=== PATIENT | female | born 1940 | race Caucasian/White ===

== ENCOUNTER → 2017-01-08 | Outpatient (CLI) | payer OTHER ==
[~2017-01-08] MED LIST: ALBU1AER9 INH; ATOR-26 PO; CYAN10005 PO; DPH/ PO; IRON TAB PO; MISCTAB78 PO; MOME220A INH; MONT1TAB3 PO; PRLSR20 PO; SERT50TA PO; SUMA50TA15 PO; TRAZ50TA35 PO; VERA1CAP7 PO; ZYRTEC PO
--- NOTE | 2017-01-08 16:10 | DIAGNOSTIC IMAGING REPORT ---
CHEST 2 VIEWS ROUTINE CLINICAL HISTORY: J45.909 [id number] dyspnea COMPARISON STUDY: 12/13/2015 FINDINGS: Mild chronic bilateral interstitial prominence. Chronic platelike atelectasis left base. No focal infiltrate. No cardiac enlargement. IMPRESSION: Mild interstitial change considered chronic. Chronic platelike atelectasis left base. No acute process. The above report was generated using voice recognition software. It may contain grammatical, syntax or spelling errors. Electronically signed by: Jerome Parmar M.D. 01/08/2017 4:08 PM Dictated Date/Time: 01/08/2017 4:08 PM
== END | disposition home or self-care (01) ==
LOC: C.RAD1850 15:51
PROVIDERS: ATTEND Internal Medicine Pulmonary Disease
DX: J45.909 Unspecified asthma, uncomplicated (principal); R91.8 Other nonspecific abnormal finding of lung field

== ENCOUNTER → 2017-01-31 | Outpatient (CLI) | payer OTHER ==
--- NOTE | 2017-01-31 12:43 | MAMMOGRAPHY REPORT ---
BILATERAL DIGITAL SCREENING MAMMOGRAM TOMOSYNTHESIS WITH CAD: 01/31/2017 CLINICAL HISTORY: Routine screening. TECHNIQUE: Breast tomosynthesis in addition to standard 2D mammography was performed. Current study was also evaluated with a Computer Aided Detection (CAD) system. COMPARISON: Comparison is made to exams dated: 11/23/2015 mammogram, 09/08/2014 mammogram, 07/28/2013 ma mmogram, 06/04/2012 mammogram, 05/18/2011 mammogram - [facility], and 02/22/2009. BREAST COMPOSITION: The tissue of both breasts is almost entirely fatty. FINDINGS: Interval bilateral reduction mammoplasty. A large benign rim calcification in the upper ou ter quadrant of the left breast is no longer seen, likely surgically excised. The focal asymmetry in the right upper outer quadrant is no longer seen, also likely excised at the time of reduction. The re are scattered benign rodlike calcifications in the breasts and benign fat necrosis in the upper in ner far posterior left breast. No suspicious mass, architectural distortion or cluster of microcalci fications is seen. IMPRESSION: ACR BI-RADS CATEGORY 1: NEGATIVE There is no mammographic evidence of malignancy. A 1 year screening mammogram is recommended. The pa tient will receive written notification of the results. Approximately 10% of breast cancers are not detected with mammography. A negative mammographic report should not delay biopsy if a clinically suggestive mass is present. Nicolette Bower M.D. ay/:01/31/2017 12:10:57 Dinkey Engine Firer: Rossy COLON)(Zenaida), [facility] letter sent: Normal 1/2 BI-RADS Code: ACR BI-RADS Category 1: Negative
== END | disposition home or self-care (01) ==
LOC: C.MAMM 10:07
PROVIDERS: ATTEND Family Medicine
DX: Z12.31 Encounter for screening mammogram for malignant neoplasm of breast (principal)

== ENCOUNTER → 2017-12-10 | Outpatient (CLI) | payer OTHER | END | disposition home or self-care (01) | LOC: C.MAMM 11:20 | PROVIDERS: ATTEND Family Medicine | DX: M85.89 Other specified disorders of bone density and structure, multiple sites (principal) ==

== ENCOUNTER 2019-10-20 08:48 | Observation (INO) ==
--- NOTE | 2019-10-06 08:58 | PAT Medication Instructions ---
Medication Instructions Date of Service October 06, 2019 Home Medications aspirin [Aspirin Low Dose] 81 mg PO 3XWK ferrous sulfate 325 mg PO QAM [id number] [Osteo Bi-Flex Triple Strength] 1 tab PO QAM meloxicam 15 mg PO QAM montelukast 10 mg PO HS verapamil 300 mg PO PM alendronate 70 mg tablet 70 mg PO WEEKLY atorvastatin 10 mg tablet 10 mg PO WK cholecalciferol (vitamin D3) 50 mcg (2,000 unit) capsule 50 mcg PO QAM cyanocobalamin (vitamin B-12) 1,000 mcg tablet 5,000 mcg PO QAM fluticasone furoate 200 mcg-vilanterol 25 mcg/dose inhalation powder 1 puffs INH QAM sertraline 50 mg tablet 75 mg PO QPM ascorbic acid (vitamin C) [Vitamin C] 2 g PO QAM omeprazole 20 mg PO DAILY PRN trazodone 25 mg PO HS Continue as directed aspirin [Aspirin Low Dose] 81 mg PO 3XWK atorvastatin 10 mg tablet 10 mg PO WK alendronate 70 mg tablet 70 mg PO WEEKLY ASK your surgeon for instructions meloxicam 15 mg PO QAM STOP taking 2 weeks before surgery (or as soon as possible if surgery is within 2 weeks) [id number] [Osteo Bi-Flex Triple Strength] 1 tab PO QAM DO NOT take the morning of surgery ferrous sulfate 325 mg PO QAM cholecalciferol (vitamin D3) 50 mcg (2,000 unit) capsule 50 mcg PO QAM cyanocobalamin (vitamin B-12) 1,000 mcg tablet 5,000 mcg PO QAM ascorbic acid (vitamin C) [Vitamin C] 2 g PO QAM Take morning of surgery With a small sip of water, OTHERWISE NOTHING TO EAT OR DRINK AFTER MIDNIGHT: fluticasone furoate 200 mcg-vilanterol 25 mcg/dose inhalation powder 1 puffs INH QAM omeprazole 20 mg PO DAILY PRN (if needed) Take evening before surgery montelukast 10 mg PO HS verapamil 300 mg PO PM sertraline 50 mg tablet 75 mg PO QPM omeprazole 20 mg PO DAILY PRN (if needed) trazodone 25 mg PO HS Other Notes If you have any questions please call us at [phone] or [phone] or [phone] or [phone]
--- NOTE | 2019-10-06 11:23 | Anesthesiology Consultation ---
Date of Service October 06, 2019 Assessment & Plan (1) Encounter for pre-operative examination: - Cardiology office visit: 10/17/15: Hx "small LVOT gradient." Cardiac cath done 09/2015 with "no evidence of significant epicardial or coronary artery disease.. right atrial pressure was slightly elevated.. mean PA pressure was top normal.. cardiac index was appropriate.. no evidence of mid cavitary or LVOT gradient [on verapamil] nor significant aortic stenosis or mitral regurgitation." F/U one year recommended. Patient lost to cardiac f/u. Case reviewed with Dr. Simmons- needs cardiology preop evaluation (arranging). - S/P B/L breast reduction/liposuction: 01/18/16: Grade view 1, MAC#3, ETT 7.5 at [facility] - COVID status: no hx testing. Travel assessment: negative as of 10/05 PAT visit. Chart Review Chart Review: Patient seen in Pre Admission Testing Teaching & Discussion Pre-Anesthesia Teaching/Discussion Notes: Instructed NPO after midnight before surgery,except medications with 15 cc of water. Medication instructions provided according to the PAT guidelines. History Surgery Operation Date: 10/22/19 07:30 Proposed Procedures p Left Total Knee Arthroplasty and Right Knee Injection - Chau Garcia MD Height/Weight Height: 5 ft 2 in Weight: 69.3 kg Allergies Allergy/AdvReac Type Severity Reaction Status Date / Time cat dander Allergy Unknown itchy eyes Verified 10/01/19 14:28 asthma No Known Drug Allergies Allergy Unknown NONE Verified 10/01/19 14:28 Medications Home Medications Medication Instructions Recorded Confirmed Last Taken aspirin [Aspirin Low Dose] 81 mg PO 3XWK 06/28/18 10/01/19 06/27/18 ferrous sulfate 325 mg PO QAM 06/28/18 10/01/19 06/27/18 [id number]-[id number]-C-elisha-bosw 1 tab PO QAM 06/28/18 10/01/19 06/27/18 [Osteo Bi-Flex Triple Strength] meloxicam 15 mg PO QAM 06/28/18 10/01/19 06/27/18 montelukast 10 mg PO HS 06/28/18 10/01/19 06/27/18 verapamil 300 mg PO PM 06/28/18 10/01/19 06/27/18 alendronate 70 mg tablet 70 mg PO WEEKLY tab 09/24/19 10/01/19 Unknown atorvastatin 10 mg tablet 10 mg PO WK tab 09/24/19 10/01/19 Unknown cholecalciferol (vitamin D3) 50 50 mcg PO QAM 09/24/19 10/01/19 Unknown mcg (2,000 unit) capsule cyanocobalamin (vitamin B-12) 5,000 mcg PO QAM tab 09/24/19 10/01/19 Unknown 1,000 mcg tablet fluticasone furoate 200 1 puffs INH QAM 09/24/19 10/01/19 Unknown mcg-vilanterol 25 mcg/dose inhalation powder sertraline 50 mg tablet 75 mg PO QPM tab 09/24/19 10/01/19 Unknown ascorbic acid (vitamin C) [Vitamin 2 g PO QAM 10/01/19 10/01/19 Unknown C] omeprazole 20 mg PO DAILY PRN 10/01/19 10/01/19 Unknown trazodone 25 mg PO HS 10/01/19 10/01/19 Unknown Past Medical History Medical History (Updated 10/06/19 @ 13:46 by Val Johnson) Anxiety (Inactive) Arthritis (Inactive) Asthma follows with pulmonary (Dr. Alcaraz)/stable Degenerative disc disease Depression GERD (gastroesophageal reflux disease) controlled Hiatal hernia Hypercholesterolemia (Inactive) Left ventricular outflow tract obstruction "small" gradient per 2016 cardiology records Restrictive lung disease (Inactive) Exercise / Class Metabolic Activity III < 4 Walking/Shop/Light housework Past Surgical History Surgical History (Updated 10/06/19 @ 13:13 by Val Johnson) History of colonoscopy History of esophagogastroduodenoscopy (EGD) History of facelift performed by DR MOELLER S/P abdominoplasty S/P bilateral breast reduction (01/18/16) B/L breast reduction/lipsuction: 01/18/16: Grade view 1, MAC#3, ETT 7.5 at [facility] S/P cataract surgery BL Past Anesthesia History No Hx of Anesthesia Complications and No Family Hx of Anesthesia Complications History of PONV No Hx of PONV and No Hx of Motion Sickness Social History Smoking Status: Never smoker Do You Dip or Chew Tobacco: No Hx Alcohol Use: Yes Alcohol type: other alcohol intake frequency: holidays/special occasions only Alcohol Intake Frequency Comment: MAYBE ONCE A YEAR Hx Substance Use: No Review of Systems Reflux controlled. Patient denies chest pain, shortness of breath, cough, wheezing, palpitations. Physical Exam Vital Signs VITALS BP 15/54 P 86 TEMP 98.6 SP02 94%RA RESP 18 PHYSICAL Full neck and c-spine range of motion. Full TMJ range of motion. TMD 3.5 finger breaths Mallampati Score 1 Dentition: missing molar, several crowns Lungs: clear throughout to auscultation Cardiac: regular rate and rhythm, no murmurs noted Spine: normal Carotid arteries: negative bruit Extremities: no edema Testing Laboratory Results 10/06/19 11:45 10/06/19 11:45 PT 10.7 Seconds (9.0-12.0) 10/06/19 11:45 INR 1.0 (0.9-1.1) 10/06/19 11:45 APTT 27.6 Seconds (21.0-31.0) 10/06/19 11:45 Blood Type O Positive 10/06/19 11:45 Antibody Screen NEGATIVE 10/06/19 11:45 Electrocardiogram Date: 10/06/19 NSR at 77bpm. LAFB. Inferior infarct. unconfirmed report; inferior infarct cited on/before 01/23/2013 per EKG scanned into [facility] from 09/2015 Chest X-Ray Date: 12/16/18 No significant change compared to the prior study. No acute process. Mild chronic interstitial thickening persists. Echocardiogram Date: 08/26/15 EF >70%. No RWMA. Basal asymmetric hypertrophy of the elderly. 19mmhg LVOT gradient. Grade I DD. No significant valvular disease. Stress Test Date: 09/05/15 Type: exercise No ischemic ST/TW changes with exercise at 79% MPHR. Occasional PAC's. Deconditioned response. LVEF 60%. No RWMA. LV wall motion response to exercise normal. No ischemic ECHO changes. 4.5 METS. Cardiac Catheterization Date: 09/28/15 "no evidence of significant epicardial or coronary artery disease.. right atrial pressure was slightly elevated.. mean PA pressure was top normal.. cardiac index was appropriate.. no evidence of mid cavitary or LVOT gradient [on verapamil] nor significant aortic stenosis or mitral regurgitation." per 2016 cardiology records Pulmonary Function Test Date: 12/16/18 Spirometry shows a reduction in both forced vital capacity and FEV1 with a normal FEV1/FEC ratio. Mild restriction is the pattern. Repeat study with bronchodilator showed no change.
[2019-10-06 12:40] LABS: Basophils # (auto) 0.04 K/uL (0-0.2); Basophils % (auto) 0.7 %; Eosinophils # (auto) 0.48 K/uL (0-0.5); Eosinophils % (auto) 8.2 %; Hematocrit (blood only) 45.1 % (37-47); Hemoglobin 14.7 g/dL (12.0-16.0); Immature Granulocytes # (auto) 0.01 K/uL (0.00-0.02); Immature Granulocytes % (auto) 0.2 %; Lymphocytes # (auto) 1.72 K/uL (1.2-3.4); Lymphocytes % (auto) 29.5 %; Mean Corpuscular Hemoglobin 29.2 pg (25-34); Mean Corpuscular Hgb Conc 32.6 g/dL (32-36); Mean Corpuscular Volume 89.7 fL (80-100); Mean Platelet Volume 11.4 fL (7.4-10.4); Monocytes # (auto) 0.55 K/uL (0.11-0.59); Monocytes % (auto) 9.4 %; Neutrophils # (auto) 3.04 K/uL (1.4-6.5); Platelet Count 193 K/uL (130-400); RDW Coefficient of Variation 13.8 % (11.5-14.5); RDW Standard Deviation 45.4 fL (36.4-46.3); Red Blood Count 5.03 M/uL (4.2-5.4); White Blood Count 5.84 K/uL (4.8-10.8)
[2019-10-06 12:52] LABS: BUN Creatinine Ratio 25.1 (10-20); Calcium 8.5 mg/dl (8.5-10.1); Creatinine Clr Calc Pharmacy 49.2 ml/min; Est GFR (Non-African American) 64.7
[2019-10-06 12:54] LABS: Partial Thromboplastin Time 27.6 Seconds (21.0-31.0); Prothrombin Time 10.7 Seconds (9.0-12.0)
--- NOTE | 2019-10-07 05:43 | Electrocardiogram Report ---
Test Reason : Blood Pressure : / mmHG Vent. Rate : 077 BPM Atrial Rate : 077 BPM P-R Int : 164 ms QRS Dur : 086 ms QT Int : 408 ms P-R-T Axes : 039 -45 033 degrees QTc Int : 461 ms Normal sinus rhythm Left anterior fascicular block Inferior infarct , age undetermined Abnormal ECG When compared with ECG of 27-FEB-2010 14:18, Questionable change in QRS duration Inferior infarct is now Present Confirmed by Jaquan March ([id number]) on 10/07/2019 5:43:00 AM Referred By: Chau Garcia Confirmed By:Jaquan March
[2019-10-16 21:14] LABS: SARS CoV2 RNA (COVID-19) NOT DETECTED (NOT DETECTED)
[~2019-10-20 08:48] MED LIST changes: +ACETAMINOPHEN 500 MG TAB PO SCH; -ALBU1AER9 INH; -ATOR-26 PO; +BUPIVACAINE 0.5 % 5 MG/1 ML PF 10ML VIAL ONE; +BUPIVACAINE LIPOSOME/PF 266 MG, BUPIVACAINE/EPINEPHRINE 50 ML, SODIUM CHLORIDE 0.9% 30 ... INFIL SCH; +CEFAZOLIN 2000MG 2,000 MG/15 ML SYR IV SCH; -CYAN10005 PO; -DPH/ PO; +FAMOTIDINE 20 MG TAB PO SCH; +GABAPENTIN 300 MG CAP PO SCH; -IRON TAB PO; +LR 500ML BOLUS, THEN 15ML/HR IV SCH; +LR 60ML/HR IV SCH; +METOCLOPRAMIDE HCL 10 MG TABLET PO SCH; -MISCTAB78 PO; -MOME220A INH; -MONT1TAB3 PO; -PRLSR20 PO; +ROPIVACAINE 0.5% 5 MG/ML 30 ML VIAL ONE; -SERT50TA PO; -SUMA50TA15 PO; +TRANEXAMIC ACID 1,000 MG **IV Intra-op IV SCH; -TRAZ50TA35 PO; -VERA1CAP7 PO; -ZYRTEC PO
--- NOTE | 2019-10-20 08:55 | History & Physical Bridge Note ---
Date of Service October 20, 2019 History & Physical Bridge Note I have examined the patient, reviewed the History & Physical and in the interval since the performance of the History & Physical I have noted the following changes of clinical significance: no changes noted
[2019-10-20] MEDS ORDERED: BETAMETH SOD PHOS/ACETATE IA 6 MG/ML IA ONE (09:30)
[2019-10-20] MEDS ORDERED: PROPOFOL IV EMULSION 10 MG/ML 20 ML VIAL IV ONE (09:35)
[2019-10-20] MEDS ORDERED: LIDOCAINE HCL 2% 2 ML VIAL/AMP(20MG/ML) INFIL ONE (09:35)
[2019-10-20] MEDS ORDERED: MIDAZOLAM HCL 1 MG/ML 2ML VIAL ONE (09:36)
[2019-10-20] MEDS ORDERED: fentaNYL citrate 100 MCG/2 ML VIAL IV PRN (10:47)
[2019-10-20] MEDS ORDERED: ePHEDrine sulfate 50 MG/ML AMP IV PRN (10:47)
[2019-10-20] MEDS ORDERED: ATROPINE SULFATE 0.1 MG/ML 10ML SYR IV PRN (10:47)
[2019-10-20] MEDS ORDERED: BUPIVACAINE LIPOSOME 1.3% 266 MG/20 ML VIAL ONE (10:55)
[2019-10-20] MEDS ORDERED: SODIUM CHLORIDE 0.9% PF 50 ML VIAL ONE (10:55)
[2019-10-20] MEDS ORDERED: BUPIVACAINE/EPINEPHRINE 0.25% 1:200,000 30 ML VIAL ONE (10:55)
[2019-10-20] MEDS ORDERED: BACITRACIN INJ 50,000 UNIT VIAL ONE (10:55)
[2019-10-20] MEDS ORDERED: BUPIVACAINE 0.5 % 5 MG/1 ML MPF 30ML VIAL ONE (10:55)
[2019-10-20] MEDS ORDERED: SODIUM CHLORIDE 0.9% INJ 10 ML VIAL ONE (12:03)
[2019-10-20] MEDS ORDERED: ePHEDrine sulfate 50 MG/ML AMP ONE (12:03)
--- NOTE | 2019-10-20 12:52 | Post Operative Brief Note ---
PG Immediate Post Op with CF Date of Surgery October 20, 2019 Pre & Post Diagnosis Operation Date: 10/20/19 10:40 Pre-Op Diagnosis: Bilateral Knee Advanced Degenerative Joint Disease, Left greater than Right Post-Op Diagnosis: Bilateral Knee Advanced Degenerative Joint Disease, Left greater than Right I identified the patient and participated in the time-out.: Yes Procedure Operation Date: 10/20/19 10:40 Actual Procedures p Left Total Knee Arthroplasty(Left) - Chau Garcia MD s Right Knee Injection(Right) - Chau Garcia MD Surgeon Chau Garcia MD Inside Sales Advisor Zoe, PAC Estimated Blood Loss 50 Findings Consistent with Post-Op Diagnosis Fluids 1300 cc Specimens Specimen Description: A. Left Knee Bone and Tissue Drains Fisher Catheter Anesthesia Type Spinal MAC Complications none Disposition Accompanied Patient To Recovery: No Disposition: Recovery Room
--- NOTE | 2019-10-20 13:22 | XRay Report ---
XR knee LT 1 or 2V routine CLINICAL HISTORY: Surgical Post Op postoperative evaluation COMPARISON: 05/12/2018 DISCUSSION: Total left knee arthroplasty. Could contact between metallic component and underlying bon e. Expected postoperative soft tissue change. IMPRESSION: Anatomic alignment posttotal left knee arthroplasty. ACT 112: Negative or not required by law. The above report was generated using voice recognition software. It may contain grammatical, syntax or spelling errors. Electronically signed by: Jerome Parmar M.D. 10/20/2019 1:21 PM
--- NOTE | 2019-10-20 14:13 | Anesthesiology Progress Note ---
Date of Service October 20, 2019 Anesthesia Post Procedure Vital Signs Vital Signs: Temp Pulse Pulse Resp BP BP Pulse Ox 10/20/19 14:05 83 14 117/64 95 10/20/19 13:55 82 16 108/66 96 10/20/19 13:45 81 14 118/71 98 10/20/19 13:35 82 20 111/69 93 10/20/19 13:25 80 16 120/66 94 10/20/19 13:15 81 14 121/64 98 10/20/19 13:05 83 18 103/65 98 10/20/19 12:59 36.4 C L 82 14 101/61 96 10/20/19 09:31 36.9 C 90 18 142/87 H 94 Pain Intensity Bilateral Knee: Pain Intensity: 3 Transfer of Care Handoff Completed per policy Notes Mental Status: alert / awake / arousable and participated in evaluation Patient Amnestic to Procedure: Yes Nausea / Vomiting: adequately controlled Pain: adequately controlled Airway Patency, RR, SpO2: stable & adequate BP & HR: stable & adequate Hydration State: stable & adequate Neuraxial Anesthesia: was administered and sensory block is resolving Anesthetic Complications: no major complications apparent
[2019-10-20] MEDS ORDERED: ONDANSETRON INJ 2 MG/ML 2 ML VIAL IV PRN (14:35)
[2019-10-20] MEDS ORDERED: ALUMINUM/MAGNESIUM SUSP 30 ML UDC PO PRN (14:35)
[2019-10-20] MEDS ORDERED: METOCLOPRAMIDE HCL INJ 5 MG/ML 2 ML VIAL IV PRN (14:35)
[2019-10-20] MEDS ORDERED: bisacodyL 10 MG SUPP PR PRN (14:35)
[2019-10-20] MEDS ORDERED: MAGNESIUM HYDROXIDE SUSP 30 ML UDC PO PRN (14:35)
[2019-10-20] MEDS ORDERED: PANTOprazole 40 MG TAB PO PRN (14:35)
[2019-10-20] MEDS ORDERED: NALOXONE HCL 0.4 MG/1 ML VIAL/CARP IV PRN (14:35)
[2019-10-20] MEDS: ACETAMINOPHEN 500 MG TAB PO SCH ×2 (15:30→22:33)
[2019-10-20] MEDS: SODIUM CHLORIDE 0.9% 1000ML 1,000 ML IV SCH (15:33)
--- NOTE | 2019-10-20 17:53 | Operative Report ---
Post Operative Report Pre & Post Diagnosis Operation Date: 10/20/19 10:40 Pre-Op Diagnosis: Bilateral Knee Advanced Degenerative Joint Disease, Left greater than Right Post-Op Diagnosis: Bilateral Knee Advanced Degenerative Joint Disease, Left greater than Right I identified the patient and participated in the time-out.: Yes Procedure Operation Date: 10/20/19 10:40 Actual Procedures p Left Total Knee Arthroplasty(Left) - Chau Garcia MD s Right Knee Injection(Right) - Chau Garcia MD Surgeon Chau Garcia MD Tunnel Elastic Operator Lockstitch Zoe, PAC Estimated Blood Loss 50 Findings Consistent with Post-Op Diagnosis Operative findings revealed advanced left knee DJD. She had extensive grade 4 brfy-ro-ddyn disease of the medial femoral condyle medial tibial plateau with punctate bleeding of the medial femoral condyle. She had more spotty grade 4 changes elsewhere. She had a large medial osteophyte of the medial femoral condyle medial tibial plateau. She had extensive subchondral sclerosis and a large knee joint effusion. Fluids 1300 cc. Specimens Left knee sent for pathology. Drains None. Anesthesia Type Spinal MAC Complications none Disposition Accompanied Patient To Recovery: No Disposition: Recovery Room Indications Patient is a 79-year-old very active individual whose had a long history of bilateral knee pain discomfort that is become more debilitating over time. She developed progressive deformity and extensive grade 4 changes medial femoral condyles on both sides of her knees. The left knee was a bit worse than the right. She had failed extensive conservative treatment was markedly limited by her knee pain and discomfort. She elected proceed with left total knee arthroplasty as well as a right knee injection at the same time. Description of Procedure Operative implants consisted of: 1. Biomet Vanguard size 60 left posterior by femoral component. 2. Biomet size 63 tibial tray. 3. 10 mm posterior stabilized polyethylene insert. 4. 28 x 8 all poly-patella. Patient was taken to the operating room identified and placed on the operating table supine position. All contractors were properly padded. IV antibiotics provided by the anesthesia team. A spinal anesthetic and abductor canal block h ad provided in the holding area. Fisher catheter was placed in sterile fashion. A left thigh tourniquet was then placed. Attention was then drawn to the right knee. The right knee was cleaned with alcohol. Under sterile technique 2 cc of Celestone and 8 cc of half percent Marcaine were injected into the right knee in a sterile fashion. A Band-Aid was applied. Attention drawn to the left leg. The left leg was prepped and draped in the usual sterile fashion. The left leg was then elevated and exsanguinated use of an Esmarch and turns placed at 300 mmHg. An anterior posterior left knee was then performed to longitudinal incision centered over the patella. Sharp dissection was gone through subcutaneous tissue down below the extensor mechanism. A medial parapatellar arthrotomy incision was made. Some subperiosteal dissection was carried out medially. The fat pad was dissected from each patella tendon. Lateral patellofemoral ligament was released. Patella was everted knee was flexed. The osteophytes were taken off the distal femur. The ACL and PCL were then released from distal femur the tibia subluxate anteriorly. The external tibial alignment jig was then placed in the interface the tibia and adjusted 14 mm medially. Proximal tibial cut was made to move about a millimeter bone at most from the most efficient aspect the medial tibial plateau. She did have fairly extensive bony damage to the medial tibial plateau. Some osteophytes were taken off medial and posterior medially. Tibia sized to a size 63. Attention drawn the femur. The distal femur was done with a sharp drill. Intramedullary canal was suction. A left 5 degree valgus cutting guide was placed. Distal femoral cutting block was pinned in place but distal femoral cut was made to take an additional 3 mm of bone off distal femur. Femur was then sized to a size 60. The AP cutting block was pinned parallel to the epicondylar axis which was 4 degrees of external rotation. The anterior cut, anterior chamfer, posterior cut, posterior chamfer cuts were made. Box cutting guide was placed in a just slight lateral box cut was made. The knee was flexed. The remnants of the medial lateral m enisci were excised. The osteophytes were taken off the posterior aspect of the femur. A trial femoral component was placed for the tibial tray was pinned in maximum external rotation and the drill and stem punch were used to create defect in proximal tip for the tibial tray. The knee was then trialed and the 10 mm insert fit most appropriately. Attention drawn the patella. The patella was cleaned of all soft tissues. Patella thickness measured 19 mm in thickness was cut down to 13. Was sized to a size 28 patella. The locals were drilled for the 28 patella. The lateral osteophyte is moved. Patella button was placed. Knee was taken through range of motion patella tracked nicely with no thumbs test. Attention drawn to placing permanent components. New profile trial components removed. Bone plug was placed in the disc femur limit blood loss. A single batch Palacos G cement was mixed. A Biomet Vanguard size 60 left posterior stabilized femoral component, a size 63 tibial tray, 10 mm posterior box polyethylene insert, and a 28 x 8 all poly-patella then cement in place. Knee was brought out into full extension total cement hardened. Final cement check was then performed. The pericapsular tissues were injected with total 100 cc of combination of 20 cc of Exparel, 30 cc normal saline, 50 cc of quarter percent Marcaine with epinephrine. Patient did receive 1 g of tra nexamic acid. The tourniquet was then let down for final tourniquet time of 56 minutes. Hemostasis surgery was electrocautery. The extensor neck was then closed with combination 1 PDS suture and #1 Vicryl suture in [id number] fashion. Extensor mechanism checked found to be intact the subcutaneous tissue then closed with 2 Dexon suture in a buried interrupted fashion skin was closed skin danita. Leg was then cleaned dried and sterile dressed composed Xeroform, 4 x 4's, sterile cast padding, Amaury bandage were applied. The patient transferred to the recovery room in stable condition. Patient tolerated procedure well no comp case but only sponge counts are correct at the end the operation I attest to the content of the Intraoperative Record and any orders documented therein. Any exceptions are noted below.
[2019-10-20] MEDS: FERROUS GLUCONATE 324 MG TAB PO SCH (18:02)
[2019-10-20] MEDS: KETOROLAC TROMETHAMINE 15 MG/ML VIAL IV SCH (18:05)
[2019-10-20] MEDS: CEFAZOLIN 1000MG 1,000 MG/7.5 ML SYR IV SCH (18:49)
[2019-10-20] MEDS ORDERED: TRANEXAMIC ACID / 0.7% NACL 1,000 MG/100 ML BAG IV SCH (19:00)
[2019-10-20] MEDS: SENNA 8.6 MG TAB PO SCH (20:38)
[2019-10-20] MEDS: DOCUSATE SODIUM 100 MG CAP PO SCH (20:38)
[2019-10-20] MEDS: SERTRALINE HCL 50 MG TABLET PO SCH (20:44)
[2019-10-20] MEDS: ASPIRIN 81 MG ECTAB PO SCH (20:44)
[2019-10-20] MEDS: MONTELUKAST SODIUM 10 MG TABLET PO SCH (20:45)
[2019-10-20] MEDS: VERAPAMIL HCL 180 MG TABCR PO SCH (20:45)
[2019-10-20] MEDS: VERAPAMIL HCL 120 MG TABCR PO SCH (20:46)
[2019-10-20] MEDS: TRAZODONE HCL 50 MG TAB PO SCH (22:33)
[2019-10-21] MEDS: KETOROLAC TROMETHAMINE 15 MG/ML VIAL IV SCH ×4 (00:59→17:35)
[2019-10-21] MEDS: SODIUM CHLORIDE 0.9% 1000ML 1,000 ML IV SCH (01:00)
[2019-10-21] MEDS: CEFAZOLIN 1000MG 1,000 MG/7.5 ML SYR IV SCH (03:59)
[2019-10-21 05:37] LABS: Hematocrit (blood only) 38.2 % (37-47); Hemoglobin 12.4 g/dL (12.0-16.0); Mean Corpuscular Hemoglobin 28.8 pg (25-34); Mean Corpuscular Hgb Conc 32.5 g/dL (32-36); Mean Corpuscular Volume 88.6 fL (80-100); Mean Platelet Volume 10.9 fL (7.4-10.4); Platelet Count 177 K/uL (130-400); RDW Coefficient of Variation 13.8 % (11.5-14.5); RDW Standard Deviation 45.1 fL (36.4-46.3); Red Blood Count 4.31 M/uL (4.2-5.4); White Blood Count 12.21 K/uL (4.8-10.8)
[2019-10-21 06:06] LABS: BUN Creatinine Ratio 16.2 (10-20); Calcium 7.8 mg/dl (8.5-10.1); Creatinine Clr Calc Pharmacy 45.9 ml/min; Est GFR (Non-African American) 60.4; Potassium 4.1 mmol/L (3.5-5.1)
[2019-10-21] MEDS: ACETAMINOPHEN 500 MG TAB PO SCH ×3 (06:10→22:39)
--- NOTE | 2019-10-21 08:08 | Progress Notes ---
DATE: 10/21/2019 SUBJECTIVE: A 79-year-old female postop day 1 from left knee replacement and right knee injection. She is doing well. Really not much pain. Had a pretty good night. No chest pain or shortness of breath. Not feeling dizzy or lightheaded. OBJECTIVE: VITAL SIGNS: Temperature 36.5. Vital signs stable. GENERAL: Shows a pleasant elderly female. She is sitting up in bed, looks completely comfortable. EXTREMITIES: Examination of the left leg reveals the leg to be well aligned. She can dorsiflex and plantarflex her foot appropriately. She is neurologically intact. Brisk refill. LABORATORY DATA: Hemoglobin 12.4. Hematocrit 38.2. White cell count elevated at ____. Electrolytes are stable. ASSESSMENT: A 79-year-old white female postop day 1 from a left knee replacement, right knee injection, doing well. Pain is controlled. White cell count is elevated, likely related to stress. There are no signs of infection. PLAN: 1. DVT prophylaxis including thigh-high TEDs, SCDs, and aspirin twice a day. 2. PT/OT. Weight bear as tolerated. Left total knee protocol. 3. Pain control, doing well with current pain regimen. 4. Disposition: Plan to discharge to home with some home health once adequately recovered and medically stable. Likely discharge tomorrow.
[2019-10-21] MEDS: FLUTICASONE/VILANTEROL 200/25MCG 14 PUFFS/INHALER INH SCH (09:00)
[2019-10-21] MEDS: DOCUSATE SODIUM 100 MG CAP PO SCH ×2 (09:01→20:53)
[2019-10-21] MEDS: MULTIVITAMIN TAB PO SCH (09:02)
[2019-10-21] MEDS: ASPIRIN 81 MG ECTAB PO SCH ×2 (09:02→20:55)
[2019-10-21] MEDS: CHOLECALCIFEROL 1,000 UNITS 25 MCG TAB PO SCH (09:02)
[2019-10-21] MEDS: FERROUS GLUCONATE 324 MG TAB PO SCH ×2 (09:02→17:35)
[2019-10-21] MEDS: ASCORBIC ACID 500 MG TAB PO SCH (09:02)
[2019-10-21] MEDS: CYANOCOBALAMIN (VITAMIN B-12) 2,500 MCG TAB.SUBL SL SCH (09:03)
[2019-10-21] MEDS ORDERED: SUMAtriptan succinate 25 MG TAB PO PRN (11:59)
[2019-10-21] MEDS: FAMOTIDINE 20 MG TAB PO PRN (15:11)
[2019-10-21] MEDS ORDERED: ATORVASTATIN 10 MG TAB PO SCH (17:00)
[2019-10-21] MEDS: TRAMADOL HCL 50 MG TABLET PO PRN (19:46)
[2019-10-21] MEDS: SENNA 8.6 MG TAB PO SCH (20:53)
[2019-10-21] MEDS: MONTELUKAST SODIUM 10 MG TABLET PO SCH (20:54)
[2019-10-21] MEDS: SERTRALINE HCL 50 MG TABLET PO SCH (20:54)
[2019-10-21] MEDS: VERAPAMIL HCL 120 MG TABCR PO SCH (20:55)
[2019-10-21] MEDS: VERAPAMIL HCL 180 MG TABCR PO SCH (20:55)
[2019-10-21] MEDS: TRAZODONE HCL 50 MG TAB PO SCH (22:39)
[2019-10-22] MEDS: KETOROLAC TROMETHAMINE 15 MG/ML VIAL IV SCH ×3 (00:12→15:09)
[2019-10-22] MEDS: ACETAMINOPHEN 500 MG TAB PO SCH ×3 (05:43→22:31)
[2019-10-22] MEDS: TRAMADOL HCL 50 MG TABLET PO PRN (05:45)
[2019-10-22] MEDS: FLUTICASONE/VILANTEROL 200/25MCG 14 PUFFS/INHALER INH SCH (08:38)
[2019-10-22] MEDS: ASPIRIN 81 MG ECTAB PO SCH ×2 (08:39→21:33)
[2019-10-22] MEDS: FERROUS GLUCONATE 324 MG TAB PO SCH ×2 (08:40→18:11)
[2019-10-22] MEDS: DOCUSATE SODIUM 100 MG CAP PO SCH ×2 (08:40→21:33)
[2019-10-22] MEDS: ASCORBIC ACID 500 MG TAB PO SCH (08:41)
[2019-10-22] MEDS: CHOLECALCIFEROL 1,000 UNITS 25 MCG TAB PO SCH (08:41)
[2019-10-22] MEDS: MULTIVITAMIN TAB PO SCH (08:41)
[2019-10-22] MEDS: CYANOCOBALAMIN (VITAMIN B-12) 2,500 MCG TAB.SUBL SL SCH (08:41)
[2019-10-22] MEDS: HYDROmorphone INJ 0.5 MG/0.5 ML SYR IV PRN (08:49)
[2019-10-22] MEDS: OXYCODONE HCL IR 5 MG TAB (IMMEDIATE RELEASE) PO PRN ×3 (10:33→20:28)
--- NOTE | 2019-10-22 11:03 | Progress Notes ---
DATE: 10/22/2019 SUBJECTIVE: A 79-year-old white female postop day 2 from a left knee replacement and right knee injection. She is doing pretty well. Having a bit more pain yesterday. She is requesting something stronger than tramadol. She says she has done well with oxycodone with a vertebral compression fracture. No chest pain or shortness of breath. Not feeling dizzy or lightheaded. OBJECTIVE: VITAL SIGNS: Temperature 36.7. Vital signs stable. GENERAL: Physical examination shows a pleasant elderly female. She is sitting up in bed and she is awake, alert and oriented. She looks pretty comfortable. EXTREMITIES: Examination of the left leg reveals the leg to be well aligned. Dressing is clean, dry and intact. She can dorsiflex and plantarflex her foot appropriately. She is neurologically intact. ASSESSMENT: A 79-year-old female postop day 2 from a left knee replacement, right knee injection. She is doing pretty well. She is requesting a bit stronger pain medicine and has done well with oxycodone in the past. PLAN: 1. DVT prophylaxis include thigh-high TEDs, SCDs and aspirin twice a day. 2. PT/OT. Weight bear as tolerated. Left total knee protocol. 3. Pain control. We are going to change her from tramadol to oxycodone at her request. We will continue using Tylenol around the clock. 4. Disposition: Plan to discharge to home with some home health later today.
[2019-10-22] MEDS: FAMOTIDINE 20 MG TAB PO PRN (17:11)
[2019-10-22] MEDS: SERTRALINE HCL 50 MG TABLET PO SCH (21:33)
[2019-10-22] MEDS: MONTELUKAST SODIUM 10 MG TABLET PO SCH (21:33)
[2019-10-22] MEDS: VERAPAMIL HCL 180 MG TABCR PO SCH (21:33)
[2019-10-22] MEDS: SENNA 8.6 MG TAB PO SCH (21:33)
[2019-10-22] MEDS: VERAPAMIL HCL 120 MG TABCR PO SCH (21:33)
[2019-10-22] MEDS: TRAZODONE HCL 50 MG TAB PO SCH (22:31)
[2019-10-23] MEDS: OXYCODONE HCL IR 5 MG TAB (IMMEDIATE RELEASE) PO PRN ×4 (00:31→15:08)
[2019-10-23] MEDS: HYDROmorphone INJ 0.5 MG/0.5 ML SYR IV PRN (02:50)
[2019-10-23] MEDS: ACETAMINOPHEN 500 MG TAB PO SCH ×2 (06:27→14:04)
[2019-10-23] MEDS: DOCUSATE SODIUM 100 MG CAP PO SCH (08:39)
[2019-10-23] MEDS: FERROUS GLUCONATE 324 MG TAB PO SCH (08:39)
[2019-10-23] MEDS: ASPIRIN 81 MG ECTAB PO SCH (08:39)
[2019-10-23] MEDS: MULTIVITAMIN TAB PO SCH (08:40)
[2019-10-23] MEDS: ASCORBIC ACID 500 MG TAB PO SCH (08:40)
[2019-10-23] MEDS: CYANOCOBALAMIN (VITAMIN B-12) 2,500 MCG TAB.SUBL SL SCH (08:40)
[2019-10-23] MEDS: CHOLECALCIFEROL 1,000 UNITS 25 MCG TAB PO SCH (08:41)
[2019-10-23] MEDS: FLUTICASONE/VILANTEROL 200/25MCG 14 PUFFS/INHALER INH SCH (08:42)
--- NOTE | 2019-10-23 08:58 | Progress Notes ---
DATE: 10/23/2019 SUBJECTIVE: A 79-year-old white female postop day 3 from a left knee replacement, right knee injection. She had a pretty rough day yesterday and was still recovering from her migraine headache and did not feel comfortable going home. She says she is feeling much better this morning. Pain is controlled. No chest pain or shortness of breath. Not feeling dizzy or lightheaded. Headache seems to be resolved. OBJECTIVE: VITAL SIGNS: Temperature 37.2. Vital signs stable. GENERAL: Shows a pleasant elderly female. She is lying in bed, looks comfortable. EXTREMITIES: Examination of the left leg reveals the leg to be well aligned. Dressing is clean, dry and intact. She can dorsiflex and plantarflex her foot appropriately. She is neurologically intact. ASSESSMENT: A 79-year-old white female postop day 3 from a left knee replacement and right knee injection, doing better. Headaches resolved. More comfortable. PLAN: 1. DVT prophylaxis including thigh-high TEDs, SCDs, and aspirin twice a day. 2. PT/OT. Weight bear as tolerated. Left total knee protocol. 3. Pain control seems to be doing better on the oxycodone. 4. Disposition: Plan to discharge to home after therapy today.
[2019-10-23] MEDS: FAMOTIDINE 20 MG TAB PO PRN (12:28)
--- NOTE | 2019-10-26 16:07 | Discharge Summary ---
Date of Service October 26, 2019 Admission HPI Per Admitting Provider Documented in the admission H&P Admission Exam (Per Admitting) Constitutional Documented in the H&P Discharge Data Consultations 10/20/19 14:35 Consult Case Management - Discharge Planning Routine Procedures Performed Operation Date: 10/20/19 10:40 Actual Procedures p Left Total Knee Arthroplasty(Left) - Chau Garcia MD s Right Knee Injection(Right) - Chau Garcia MD Hospital Course (1) Status post total left knee replacement: 79-year-old female admitted on 10/20/2019 underwent total knee replacement. She tolerated the procedure well and there were no complications. She is transferred to the PACU postoperatively and later to the orthopedic floor for further care. She is given Ancef for antibiotic prophylaxis. She is given ARLET stockings, SCDs, and aspirin for DVT prophylaxis. Hemoglobin, hematocrit, and vital signs were monitored during hospital stay and remained stable. Should not require blood transfusions. There were no complications. She did have a migraine headache postoperatively but this did resolve. Postoperative day 3 she was tolerating a regular diet, pain was controlled with oral pain medicine, and she is participating in physical therapy. On postoperative day 3 she is discharged home set up with home health services. She is given printed discharge instructions including new prescriptions for Tylenol, aspirin, and oxycodone. Continue physical therapy. She is weightbearing as tolerated. Continue ARLET stockings. Follow-up in approximately 2 weeks postop. Coding Level of Care Code None Diagnoses Status post total left knee replacement Z96.652
== END 2019-10-23 15:53 | disposition home health service (06) ==
LOC: 3E 08:48 → ASU 08:48

== ENCOUNTER 2020-01-21 05:14 | Observation (INO) ==
--- NOTE | 2020-01-15 09:56 | Anesthesiology Consultation ---
Date of Service January 15, 2020 Assessment & Plan (1) Encounter for pre-operative examination: Chart Review Chart Review: Acceptable Risk for Surgery (pending preop Covid testing results from 01/18) and Patient NOT seen in Pre Admission Testing Per nursing assessment 01/14/2020, pt resides in [facility]. Traveled to [place], [place] to hand picker dog crate- had no interactions and used PPE. No known Covid positive contacts or Covid related symptoms. Scheduled for preop Covid testing 01/19/20. Seen by pulmonary 12/15/2019 = patient seen for follow-up on asthma and restrictive lung disease. History of PFTs done in 2018 showed a mild restrictive pattern. Plan is to repeat PFTs prior to next visit. PFTs can wait due to patient having no symptoms. Patient is to continue current medications. Follow-up in 1 year. Pulmonology is aware of upcoming right total knee replacement on 01/21/2020. Left TKA 10/20/19= Done under MAC with SAB- at L3-4 x 1 attempt. Seen by cardio 10/15/2019= seen for preop evaluation prior to left total knee replacement and eventual right total knee replacement. "From my standpoint, she can proceed with surgery. I believe her cardiac complications are in the range of 1 to 2%... I believe her greatest risk is that of arrhythmias. She is on verapamil to reduce her risk of atrial fibrillation in the postoperative period. She has never had A. fib previously. Although her functional capacity is limited due to her orthopedic issues, in the fall, she was able to do activity without significant limitations." History Surgery Operation Date: 01/21/20 13:00 Proposed Procedures p Right Total Knee Arthroplasty - Chau Garcia MD Height/Weight Height: 5 ft 2 in Weight: 68.039 kg Allergies Allergy/AdvReac Type Severity Reaction Status Date / Time cat dander Allergy Unknown itchy eyes Verified 01/14/20 08:08 asthma No Known Drug Allergies Allergy Unknown NONE Verified 01/14/20 08:08 Medications Home Medications Medication Instructions Recorded Confirmed Last Taken Osteo Bi-Flex Triple Strength 1 tab PO QAM 06/28/18 01/14/20 10/06/19 ferrous sulfate 325 mg PO QAM 06/28/18 01/14/20 10/13/19 meloxicam 15 mg PO QAM 0201/14/20 10/06/19 montelukast 10 mg PO HS 06/28/18 01/14/20 10/19/19 23:00 verapamil 300 mg PO PM 06/28/18 01/14/20 10/19/19 23:00 alendronate 70 mg tablet 70 mg PO WEEKLY tab 09/24/19 01/14/20 10/19/19 08:30 atorvastatin 10 mg tablet 10 mg PO WK tab 09/24/19 01/14/20 10/14/19 cholecalciferol (vitamin D3) 50 50 mcg PO QAM 09/24/19 01/14/20 10/13/19 mcg (2,000 unit) capsule cyanocobalamin (vitamin B-12) 5,000 mcg PO QAM tab 09/24/19 01/14/20 10/13/19 1,000 mcg tablet fluticasone furoate 200 1 puffs INH QAM 09/24/19 01/14/20 10/20/19 05:00 mcg-vilanterol 25 mcg/dose inhalation powder sertraline 50 mg tablet 75 mg PO QPM tab 09/24/19 01/14/20 10/19/19 23:00 ascorbic acid (vitamin C) [Vitamin 2 g PO QAM 10/01/19 01/14/20 10/13/19 C] omeprazole 20 mg PO DAILY PRN 10/01/19 01/14/20 10/19/19 12:00 Wheeled Walker #1 ea 10/16/19 12/15/19 Unknown amoxicillin 500 mg tablet 2,000 mg PO ONCE #4 tab 01/08/20 01/14/20 Unknown trazodone 50 mg PO HS 01/14/20 01/14/20 Unknown Past Medical History Medical History (Updated 01/15/20 @ 09:50 by Joyce Monte PA-C) Anxiety Asthma follows with pulmonary (Dr. Alcaraz)/stable Degenerative disc disease Depression GERD (gastroesophageal reflux disease) controlled Hiatal hernia Hypercholesterolemia Left ventricular outflow tract obstruction " Hx of hyperdynamic left ventricular systolic function with an LVOT gradient of 3 m/s, which has resolved with the use of verapamil." per cardio Restrictive lung disease Past Family History Family History Unknown Diabetes Hypertension Parkinsons disease Past Surgical History Surgical History (Updated 01/15/20 @ 09:50 by Joyce Monte PA-C) History of cardiac cath 2016- negative for epicardial CAD History of colonoscopy History of esophagogastroduodenoscopy (EGD) History of facelift performed by DR MOELLER History of total left knee replacement (TKR) S/P abdominoplasty S/P bilateral breast reduction (01/18/16) B/L breast reduction/lipsuction: 01/18/16: Grade view 1, MAC#3, ETT 7.5 at [facility] S/P cataract surgery BL Social History Smoking Status: Never smoker Do You Dip or Chew Tobacco: No Hx Alcohol Use: Yes Alcohol type: wine alcohol intake frequency: holidays/special occasions only Alcohol Intake Frequency Comment: ONE DRINK A YEAR Hx Substance Use: No substance use type: does not use Testing Laboratory Results Blood Type O Positive 12/10/19 12:02 Antibody Screen NEGATIVE 12/10/19 12:02 Laboratory Tests 12/10/19 12/10/19 12/10/19 12:02 12:02 12:02 WBC 10.04 Hgb 14.4 Hct 43.6 Plt Count 198 PT 10.1 INR 1.0 Sodium 138 Potassium 4.2 Chloride 109 H Carbon Dioxide 24 BUN 19 H Creatinine 0.85 Glucose 87 Electrocardiogram Date: 10/06/19 NSR at 77bpm. LAFB. Inferior infarct. (Reviewed by cardio per 10/15/2019 notecompared to her previous Veronica EKG in 2016 at the time of her cathet erization, there is no change. Patient was subsequently cleared by cardiology. Had left TKA in September 2019 without issues) Echocardiogram Date: 08/26/15 EF >70%. Hyperdynamic systolic function. No RWMA. Basal asymmetric hypertrophy of the elderly. 19mmhg LVOT gradient. Grade I DD. No significant valvular disease. Stress Test Date: 09/05/15 Type: exercise (Echo) Indeterminate stress EKG and stress echo, reaching only 79% MPHR. No ischemic ST/TW changes with exercise. Occasional PAC's. Deconditioned response. LVEF 60%. No RWMA. LV wall motion response to exercise normal. No ischemic ECHO changes at the heart rate achieved. 4.5 METS. Pulmonary Function Test Date: 12/16/18 Spirometry shows a reduction in both forced vital capacity and FEV1 with a normal FEV1/FEC ratio. Mild restriction is the pattern. Repeat study with bronchodilator showed no change.
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
[2020-01-21] MEDS ORDERED: BUPIVACAINE LIPOSOME/PF 266 MG, BUPIVACAINE/EPINEPHRINE 50 ML, SODIUM CHLORIDE 0.9% 30 ... INFIL SCH (06:00)
[2020-01-21] MEDS ORDERED: GABAPENTIN 300 MG CAP PO SCH (06:00)
[2020-01-21] MEDS ORDERED: TRANEXAMIC ACID 1,000 MG **IV Intra-op IV SCH (06:00)
[2020-01-21] MEDS ORDERED: LR 60ML/HR IV SCH (06:00)
[2020-01-21] MEDS ORDERED: FAMOTIDINE 20 MG TAB PO SCH (06:00)
[2020-01-21] MEDS ORDERED: LR 15ML/HR IV SCH (06:00)
[2020-01-21] MEDS ORDERED: ACETAMINOPHEN 500 MG TAB PO SCH (06:00)
[2020-01-21] MEDS ORDERED: CEFAZOLIN 2000MG 2,000 MG/15 ML SYR IV SCH (06:00)
[2020-01-21] MEDS ORDERED: METOCLOPRAMIDE HCL 10 MG TABLET PO SCH (06:00)
[2020-01-21] MEDS ORDERED: BUPIVACAINE 0.25% 30 ML VIAL ONE (06:21)
[2020-01-21] MEDS ORDERED: BUPIVACAINE 0.5 % 5 MG/1 ML PF 10ML VIAL ONE (06:21)
[2020-01-21] MEDS ORDERED: fentaNYL citrate 100 MCG/2 ML VIAL ONE (06:34)
[2020-01-21] MEDS ORDERED: MIDAZOLAM HCL 1 MG/ML 2ML VIAL ONE (06:34)
[2020-01-21] MEDS ORDERED: BUPIVACAINE/EPINEPHRINE 0.25% 1:200,000 30 ML VIAL ONE (06:48)
[2020-01-21] MEDS ORDERED: SODIUM CHLORIDE 0.9% PF 50 ML VIAL ONE (06:49)
[2020-01-21] MEDS ORDERED: BACITRACIN INJ 50,000 UNIT VIAL ONE (06:49)
[2020-01-21] MEDS ORDERED: BUPIVACAINE LIPOSOME 1.3% 266 MG/20 ML VIAL ONE (06:49)
--- NOTE | 2020-01-21 06:52 | History & Physical Bridge Note ---
Date of Service January 21, 2020 History & Physical Bridge Note I have examined the patient, reviewed the History & Physical and in the interval since the performance of the History & Physical I have noted the following changes of clinical significance: Also having right rotator cuff pain and wants a right shoulder injection under anesthesia. Will inject right shoulder.
[2020-01-21] MEDS ORDERED: BETAMETH SOD PHOS/ACETATE IA 6 MG/ML IA STA (06:55)
[2020-01-21] MEDS ORDERED: BUPIVACAINE 0.5 % 5 MG/1 ML MPF 30ML VIAL IA ONE (06:56)
[2020-01-21] MEDS ORDERED: LIDOCAINE HCL 2% 2 ML VIAL/AMP(20MG/ML) INFIL ONE (07:22)
[2020-01-21] MEDS ORDERED: PHENYLEPHRINE 100MCG/ML 5ML SYR ONE (07:22)
[2020-01-21] MEDS ORDERED: ONDANSETRON INJ 2 MG/ML 2 ML VIAL ONE (07:22)
[2020-01-21] MEDS ORDERED: PROPOFOL IV EMULSION 10 MG/ML 20 ML VIAL IV ONE (07:22)
[2020-01-21] MEDS ORDERED: ePHEDrine sulfate 50 MG/ML SYR ONE (07:22)
--- NOTE | 2020-01-21 08:38 | Post Operative Brief Note ---
PG Immediate Post Op with CF Date of Surgery January 21, 2020 Pre & Post Diagnosis Operation Date: 01/21/20 07:00 Pre-Op Diagnosis: Right Knee Degenerative Joint Disease, Right Knee Pain; Right rotator cuff pain Post-Op Diagnosis: Right Knee Degenerative Joint Disease, Right Knee Pain; Right rotator cuff tear I identified the patient and participated in the time-out.: Yes Procedure Operation Date: 01/21/20 07:00 Actual Procedures p Right Total Knee Arthroplasty; Right Shoulder Injection(Right) - Chau Garcia MD Surgeon Chau Garcia MD Inseminator ERLINDA Enriquez Estimated Blood Loss 50 Findings Consistent with Post-Op Diagnosis Fluids 1400 cc Specimens Specimen Description: A. Right knee bone and tissue Anesthesia Type Spinal MAC Complications none Disposition Accompanied Patient To Recovery: No Disposition: Recovery Room
[2020-01-21] MEDS ORDERED: ATROPINE SULFATE 0.1 MG/ML 10ML SYR IV PRN (09:02)
[2020-01-21] MEDS ORDERED: ePHEDrine sulfate 50 MG/ML AMP IV PRN (09:02)
--- NOTE | 2020-01-21 09:12 | XRay Report ---
XR knee RT 1 or 2V routine CLINICAL HISTORY: Postoperative evaluation. COMPARISON: Knee radiographs September 24, 2019. FINDINGS: Alignment of the total right knee arthroplasty is anatomic. There is no periprosthetic fra cture or unexpected radiopaque foreign body. There are skin danita. IMPRESSION: Expected findings following total right knee arthroplasty. ACT 112: Negative or not required by law. Electronically signed by: Igor Partida M.D. 01/21/2020 9:11 AM
--- NOTE | 2020-01-21 09:47 | Anesthesiology Progress Note ---
Date of Service January 21, 2020 Anesthesia Post Procedure Vital Signs Vital Signs: Temp Pulse Pulse Resp BP Pulse Ox 01/21/20 09:30 73 15 108/61 94 01/21/20 09:20 70 14 107/57 L 92 01/21/20 09:10 75 15 105/59 L 93 01/21/20 09:00 36.4 C L 74 16 100/60 92 01/21/20 08:50 75 15 106/58 L 99 01/21/20 08:40 36.7 C 77 16 99/59 L 98 01/21/20 06:11 69 20 138/80 97 01/21/20 05:49 37.1 C 82 20 143/84 H 96 Transfer of Care Handoff Completed per policy Notes Mental Status: alert / awake / arousable and participated in evaluation Nausea / Vomiting: adequately controlled Pain: adequately controlled Airway Patency, RR, SpO2: stable & adequate BP & HR: stable & adequate Hydration State: stable & adequate Neuraxial Anesthesia: was administered and sensory block is resolving Anesthetic Complications: no major complications apparent and Pt Satisfied with anesthetic care
[2020-01-21] MEDS ORDERED: METOCLOPRAMIDE HCL INJ 5 MG/ML 2 ML VIAL IV PRN (09:54)
[2020-01-21] MEDS ORDERED: NALOXONE HCL 0.4 MG/1 ML VIAL/CARP IV PRN (09:54)
[2020-01-21] MEDS ORDERED: ALUMINUM/MAGNESIUM SUSP 30 ML UDC PO PRN (09:54)
[2020-01-21] MEDS ORDERED: bisacodyL 10 MG SUPP PR PRN (09:54)
[2020-01-21] MEDS ORDERED: TRAMADOL HCL 50 MG TABLET PO PRN (09:54)
[2020-01-21] MEDS ORDERED: MAGNESIUM HYDROXIDE SUSP 30 ML UDC PO PRN (09:54)
[2020-01-21] MEDS ORDERED: ASCORBIC ACID PO SCH (09:54)
[2020-01-21] MEDS ORDERED: GLUCOSAM CHON MSM1 C MANG BOSW PO SCH (09:54)
[2020-01-21] MEDS ORDERED: ONDANSETRON INJ 2 MG/ML 2 ML VIAL IV PRN (09:54)
[2020-01-21] MEDS ORDERED: PANTOprazole 40 MG TAB PO PRN (10:01)
[2020-01-21] MEDS: SODIUM CHLORIDE 0.9% 1000ML 1,000 ML IV SCH ×2 (10:05→20:18)
[2020-01-21] MEDS: MULTIVITAMIN TAB PO SCH (10:26)
[2020-01-21] MEDS: DOCUSATE SODIUM 100 MG CAP PO SCH ×2 (10:26→20:26)
[2020-01-21] MEDS: ASPIRIN 81 MG ECTAB PO SCH ×2 (10:26→20:26)
[2020-01-21] MEDS: KETOROLAC TROMETHAMINE 15 MG/ML VIAL IV SCH ×3 (11:47→23:32)
[2020-01-21] MEDS: FLUTICASONE/VILANTEROL 200/25MCG 14 PUFFS/INHALER INH SCH (11:48)
[2020-01-21] MEDS: ACETAMINOPHEN 500 MG TAB PO SCH ×2 (13:02→21:17)
--- NOTE | 2020-01-21 13:08 | Operative Report ---
Post Operative Report Pre & Post Diagnosis Operation Date: 01/21/20 07:00 Pre-Op Diagnosis: Right Knee Degenerative Joint Disease, Right Knee Pain; Right rotator cuff pain Post-Op Diagnosis: Right Knee Degenerative Joint Disease, Right Knee Pain; Right rotator cuff tear I identified the patient and participated in the time-out.: Yes Procedure Operation Date: 01/21/20 07:00 Actual Procedures p Right Total Knee Arthroplasty; Right Shoulder Injection(Right) - Chau Garcia MD Surgeon Chau Garcia MD Special Equipment Technician Zoe, ERLINDA Estimated Blood Loss 50 Findings Consistent with Post-Op Diagnosis Operative findings revealed advanced right knee DJD. She had extensive grade 4 changes in all 3 compartments most severe in the medial side. She had a fixed varus deformity to her knee. She had eburnation medial femoral condyle medial tibial plateau. Fluids 1400 cc. Specimens Right knee sent for pathology. Drains None. Anesthesia Type Spinal MAC Complications none Disposition Accompanied Patient To Recovery: No Disposition: Recovery Room Indications Patient is a 80-year-old female is had a long history of bilateral knee pain discomfort describes gotten worse over time. She failed all conservative measures. She underwent a left knee replacement about 3 months ago is done well from this elected proceed with right total knee arthroplasty. Of note she had a recent injury to her right shoulder and is having pain consistent with rotator cuff pathology. She was strongly desiring a right shoulder injection at the same time. Description of Procedure Operative implants consist of: 1. Biomet Vanguard size 60 right posterior by femoral component. 2. Biomet size 63 tibial tray. 3. 10 mm posterior stabilized polyethylene insert. 4. 28 x 8 all poly-patella. Patient was taken to the operating identified placed on the operating table supine position protectors were properly padded. IV antibiotics arrived by anesthesia team. Spinal anesthetic and abductor canal block had been provided holding area. Fisher catheter was placed in sterile fashion. A right thigh turn was then placed. Attention then drawn to the right shoulder. The right shoulder was cleaned alcohol. 2 Celestone and 8 cc of Marcaine were injected in the right subacromial space in sterile fashion. Patient tolerated procedure. The right lower extremity was then prepped and draped in usual sterile fashion. The right leg was elevated exsanguinated the use of an Esmarch and turns placed at 300 mmHg. An anterior approach to the right knee was then performed to longitudinal incision centered over the patella. Sharp dissection was got through subcutaneous is down to the extensor mechanism. A medial parapatellar arthrotomy incision was made. Some subperiosteal dissection was carried out medially. The fat pad was resected from each patella tendon. Lateral patellofemoral ligament was released. Patella was subluxated laterally knee was flexed with the osteophytes taken off distal femur. The ACL and PCL were then released from the distal femur and the tibia subluxate anteriorly. The external tibial alignment jig was then placed in the interface the tibia adjusted 14 mm medially. Proximal tibial cut was made remove about a millimeter bone from most efficient aspect medial tibial plateau. Tibia was sized to a size 63. Attention drawn the femur. The distal femur was entered the sharp drill bit intramedullary canal was suct ion. A right 5 degree valgus cutting guide was placed. Distal femoral cutting block was pinned in place. Distal femoral cut was made to take an additional 3 mm of bone off the distal femur. The femur was then sized to a size 60. The AP cutting block was pinned parallel to the epicondylar axis which was 3 degrees of external rotation. Anterior cut, anterior chamfer, posterior cut, posterior c hamfer cuts were made. Box cutting guide was placed in a just slight lateral box cut was made. The knee was flexed. The remnants of the medial lateral menisci were excised. The osteophytes were taken off the posterior aspect of the femur. A trial femoral component was placed. The tibial tray was pinned in maximum external rotation and the drill and stem punch used to create defect in proximal tip for the tibial tray. Knee was then trialed and the 10 mm insert fit most appropriately. Attention drawn the patella. The patella was cleaned of all soft tissues. Patella thickness measured 18 mm is cut down to 12. Sized to a size 28 patella. Locals were drilled for the 28 patella. Lateral osteophyte was removed. Patella button was placed. Knee was taken through range of motion and the patella tracked nicely with no thumbs test. Attention then drawn to placing permanent components. All trial components were removed. A bone plug was placed into the distal femur limit blood loss put a double batch Palacos G cement was mixed. BiomContentForestguSelleration size 60 right posterior by femoral component, size 63 tibial tray, a 10 mm posterior bite polyethylene insert, 28 x 8 all poly-patella then cemented in place. Knee was brought out into full extension total cement hardened. Final cement check was then performed. The pericapsular tissues were injected with total 100 cc of combination of 20 cc of Exparel, 30 cc normal saline, 50 cc of quarter percent Marcaine with epinephrine. Patient did receive 1 g tranexamic acid. The tech was then let down for final tourniquet time of 49 minutes. Hemostasis assured with electrocautery. The wound was once again irrigated. The extensor mechanism was then closed with combination 1 PDS suture #1 Vicryl suture in [id number] fashion. The extensor mechanism checked found to be intact the subcutaneous tissue was then closed with 2 Dexon suture in a buried interrupted fashion skin was closed skin danita. Leg was then cleaned dried a sterile dressed composed Xeroform, 4 x 4's, sterile cast padding, Amaury bandage were applied. Patient then transferred to recovery room in stable condition. Patient tolerated the procedure well and there were no complications. Jalen Enriquez, my physician trust operations assistant, was present for the entire procedure. His assistance was required for appropriate patient positioning, prepping and draping, surgical exposure, performing the technical aspects of the operation, placing the implants, and closure of the wound along with placement of the sterile bandage. I attest to the content of the Intraoperative Record and any orders documented therein. Any exceptions are noted below.
--- NOTE | 2020-01-21 13:12 | Anesthesiology Progress Note ---
Date of Service January 21, 2020 Anesthesia Post Procedure Vital Signs Vital Signs: Temp Pulse Pulse Resp BP Pulse Ox 01/21/20 12:55 36.5 C 77 18 137/77 97 01/21/20 11:49 36.5 C 72 18 121/64 99 01/21/20 10:49 36.4 C L 69 16 120/68 99 01/21/20 10:22 36.4 C L 67 16 124/69 100 01/21/20 09:50 36.4 C L 72 18 99/61 L 100 01/21/20 09:30 73 15 108/61 94 01/21/20 09:20 70 14 107/57 L 92 01/21/20 09:10 75 15 105/59 L 93 01/21/20 09:00 36.4 C L 74 16 100/60 92 01/21/20 08:50 75 15 106/58 L 99 01/21/20 08:40 36.7 C 77 16 99/59 L 98 01/21/20 06:11 69 20 138/80 97 01/21/20 05:49 37.1 C 82 20 143/84 H 96 Transfer of Care Handoff Completed per policy Notes Mental Status: alert / awake / arousable and participated in evaluation Nausea / Vomiting: adequately controlled Pain: adequately controlled Airway Patency, RR, SpO2: stable & adequate BP & HR: stable & adequate Hydration State: stable & adequate Neuraxial Anesthesia: was administered and sensory block is resolving Anesthetic Complications: no major complications apparent and Pt Satisfied with anesthetic care
[2020-01-21] MEDS ORDERED: TRANEXAMIC ACID / 0.7% NACL 1,000 MG/100 ML BAG IV SCH (14:41)
[2020-01-21] MEDS: ASCORBIC ACID 500 MG TAB PO SCH (16:50)
[2020-01-21] MEDS: CEFAZOLIN 1000MG 1,000 MG/7.5 ML SYR IV SCH ×2 (16:51→23:32)
[2020-01-21] MEDS: VERAPAMIL HCL 120 MG TABCR PO SCH (20:26)
[2020-01-21] MEDS: MONTELUKAST SODIUM 10 MG TABLET PO SCH (20:26)
[2020-01-21] MEDS: SENNA 8.6 MG TAB PO SCH (20:26)
[2020-01-21] MEDS: SERTRALINE HCL 50 MG TABLET PO SCH (20:26)
[2020-01-21] MEDS: VERAPAMIL HCL 180 MG TABCR PO SCH (20:26)
[2020-01-21] MEDS: TRAZODONE HCL 50 MG TAB PO SCH (20:26)
[2020-01-21] MEDS ORDERED: VERAPAMIL 300 MG PO SCH (21:00)
[2020-01-22] MEDS: ACETAMINOPHEN 500 MG TAB PO SCH ×3 (05:22→21:40)
[2020-01-22] MEDS: KETOROLAC TROMETHAMINE 15 MG/ML VIAL IV SCH ×3 (05:22→18:41)
[2020-01-22 06:08] LABS: Hematocrit (blood only) 37.7 % (37-47); Mean Corpuscular Hemoglobin 28.2 pg (25-34); Mean Corpuscular Hgb Conc 31.8 g/dL (32-36); Mean Corpuscular Volume 88.7 fL (80-100); Mean Platelet Volume 11.1 fL (7.4-10.4); Platelet Count 213 K/uL (130-400); RDW Coefficient of Variation 13.3 % (11.5-14.5); RDW Standard Deviation 43.8 fL (36.4-46.3); Red Blood Count 4.25 M/uL (4.2-5.4); White Blood Count 13.35 K/uL (4.8-10.8)
[2020-01-22 06:51] LABS: BUN Creatinine Ratio 21.2 (10-20); Calcium 8.3 mg/dl (8.5-10.1); Creatinine Clr Calc Pharmacy 49.2 ml/min; Est GFR (African American) 76.6; Est GFR (Non-African American) 66.1; Potassium 4.5 mmol/L (3.5-5.1)
--- NOTE | 2020-01-22 08:16 | Anesthesiology Progress Note ---
Date of Service January 22, 2020 Anesthesia Post Procedure Vital Signs Vital Signs: Temp Pulse Pulse Resp BP Pulse Ox 01/22/20 07:31 36.6 C 65 16 122/59 L 94 01/22/20 03:56 36.9 C 59 L 14 109/66 94 01/21/20 23:34 36.8 C 65 14 106/62 93 01/21/20 19:52 36.7 C 80 16 133/75 95 01/21/20 15:33 36.3 C L 81 16 129/73 99 01/21/20 12:55 36.5 C 77 18 137/77 97 01/21/20 11:49 36.5 C 72 18 121/64 99 01/21/20 10:49 36.4 C L 69 16 120/68 99 01/21/20 10:22 36.4 C L 67 16 124/69 100 01/21/20 09:50 36.4 C L 72 18 99/61 L 100 01/21/20 09:30 73 15 108/61 94 01/21/20 09:20 70 14 107/57 L 92 01/21/20 09:10 75 15 105/59 L 93 01/21/20 09:00 36.4 C L 74 16 100/60 92 01/21/20 08:50 75 15 106/58 L 99 01/21/20 08:40 36.7 C 77 16 99/59 L 98 Notes Mental Status: alert / awake / arousable and participated in evaluation Patient Amnestic to Procedure: Yes Nausea / Vomiting: adequately controlled Pain: adequately controlled Airway Patency, RR, SpO2: stable & adequate BP & HR: stable & adequate Hydration State: stable & adequate Neuraxial Anesthesia: was administered and sensory block resolved Anesthetic Complications: no major complications apparent and Pt Satisfied with anesthetic care
--- NOTE | 2020-01-22 08:57 | Progress Notes ---
DATE: 01/22/2020 SUBJECTIVE: A 80-year-old white female postop day 1 from a right knee replacement and right shoulder injection. She is doing pretty well. The shoulder is feeling better. The knee is manageable. No chest pain or shortness of breath. Not feeling dizzy or lightheaded. OBJECTIVE: VITAL SIGNS: Temperature 36.6. Vital signs stable. GENERAL: Physical examination shows a pleasant elderly female. She is lying in bed, looks pretty comfortable. LUNGS: Clear to auscultation. HEART: Has a regular rate and rhythm. ABDOMEN: Soft, nontender, nondistended. EXTREMITIES: Grossly neurovascularly intact except as follows. Examination of the right lower extremity reveals the leg to be well aligned. She can dorsiflex and plantarflex her foot appropriately. She is neurologically intact. LABORATORY DATA: Hemoglobin is 12.0. Hematocrit 37.7. White cell count 13.35. Electrolytes are stable. ASSESSMENT: A 80-year-old white female postop day 1 from right knee replacement, doing pretty well. Shoulder pain is improved. She is neurologically intact. PLAN: 1. DVT prophylaxis include thigh-high TEDs, SCDs and aspirin twice a day. 2. PT/OT. Weightbear as tolerated. Right total knee protocol. 3. Pain control, doing pretty well with current pain regimen. 4. Disposition: She is planning to be discharged to home. Her son is going to come and stay with her. I think she is going to get up with some home health.
[2020-01-22] MEDS: FLUTICASONE/VILANTEROL 200/25MCG 14 PUFFS/INHALER INH SCH (08:59)
[2020-01-22] MEDS: FERROUS SULFATE 325 MG TAB PO SCH (08:59)
[2020-01-22] MEDS: CHOLECALCIFEROL 1,000 UNITS 25 MCG TAB PO SCH (08:59)
[2020-01-22] MEDS: ASCORBIC ACID 500 MG TAB PO SCH ×2 (08:59→16:23)
[2020-01-22] MEDS: MULTIVITAMIN TAB PO SCH (08:59)
[2020-01-22] MEDS: CYANOCOBALAMIN (VITAMIN B-12) 2,500 MCG TAB.SUBL SL SCH (09:00)
[2020-01-22] MEDS: ASPIRIN 81 MG ECTAB PO SCH ×2 (09:00→21:39)
[2020-01-22] MEDS: DOCUSATE SODIUM 100 MG CAP PO SCH ×2 (09:00→21:40)
[2020-01-22] MEDS: HYDROmorphone INJ 0.5 MG/0.5 ML SYR IV PRN ×2 (13:09→21:48)
[2020-01-22] MEDS: VERAPAMIL HCL 180 MG TABCR PO SCH (21:39)
[2020-01-22] MEDS: VERAPAMIL HCL 120 MG TABCR PO SCH (21:39)
[2020-01-22] MEDS: SERTRALINE HCL 50 MG TABLET PO SCH (21:39)
[2020-01-22] MEDS: TRAZODONE HCL 50 MG TAB PO SCH (21:40)
[2020-01-22] MEDS: MONTELUKAST SODIUM 10 MG TABLET PO SCH (21:40)
[2020-01-22] MEDS: SENNA 8.6 MG TAB PO SCH (21:40)
[2020-01-23] MEDS: KETOROLAC TROMETHAMINE 15 MG/ML VIAL IV SCH ×2 (00:03→05:27)
[2020-01-23] MEDS: ACETAMINOPHEN 500 MG TAB PO SCH (05:27)
[2020-01-23] MEDS: MULTIVITAMIN TAB PO SCH (07:32)
[2020-01-23] MEDS: CYANOCOBALAMIN (VITAMIN B-12) 2,500 MCG TAB.SUBL SL SCH (07:32)
[2020-01-23] MEDS: FERROUS SULFATE 325 MG TAB PO SCH (07:32)
[2020-01-23] MEDS: DOCUSATE SODIUM 100 MG CAP PO SCH (07:32)
[2020-01-23] MEDS: CHOLECALCIFEROL 1,000 UNITS 25 MCG TAB PO SCH (07:32)
[2020-01-23] MEDS: FLUTICASONE/VILANTEROL 200/25MCG 14 PUFFS/INHALER INH SCH (07:32)
[2020-01-23] MEDS: ASPIRIN 81 MG ECTAB PO SCH (07:33)
[2020-01-23] MEDS: ASCORBIC ACID 500 MG TAB PO SCH (07:33)
[2020-01-23] MEDS ORDERED: OXYCODONE HCL IR 5 MG TAB (IMMEDIATE RELEASE) PO PRN (08:23)
--- NOTE | 2020-01-23 09:14 | Progress Notes ---
DATE: 01/23/2020 SUBJECTIVE: A 80-year-old white female postop day 2 from a right knee replacement. She is doing pretty well. Pain is controlled, but present. No chest pain or shortness of breath. Not feeling dizzy or lightheaded. OBJECTIVE: VITAL SIGNS: Temperature 36.7. Vital signs stable. GENERAL: Shows a pleasant elderly female. She is sitting up in bed, looks pretty comfortable. EXTREMITIES: Examination of the right leg reveals the leg to be well aligned. Dressing is clean, dry and intact. No significant drainage. Calf is soft and supple. She is neurologically intact. ASSESSMENT: A 80-year-old white female postop day 2 from right knee replacement, doing pretty well. Pain is reasonably well controlled. She is neurologically intact. PLAN: 1. DVT prophylaxis including thigh-high TEDs, SCDs, and aspirin twice a day. 2. PT/OT. Weight bear as tolerated. Right total knee protocol. 3. Pain control, doing okay with current pain regimen. 4. Disposition: Plan to discharge to home later today with some home health.
[2020-01-27] MEDS ORDERED: ATORVASTATIN 10 MG TAB PO SCH (21:00)
--- NOTE | 2020-01-31 06:51 | Discharge Summary ---
Date of Service January 31, 2020 Admission HPI Per Admitting Provider Documented in the H & P Admission Exam (Per Admitting) Constitutional Documented in the H & P Discharge Data Consultations 01/21/20 09:54 Consult Case Management - Discharge Planning Routine Procedures Performed Operation Date: 01/21/20 07:00 Actual Procedures p Right Total Knee Arthroplasty(Right) - Chau Garcia MD s Right Shoulder Injection(Right) - Chau Garcia MD Hospital Course (1) Status post total right knee replacement: This patient is a 80 year old female admitted on 01/21/20 and underwent total knee replacement and shoulder injection. She tolerated the procedure well and there were no complications. Transferred to the PACU post op and later to the orthopedic floor for further care. She was given ancef for antibiotic prophylaxis. She was also given ARLET stockings, SCDs, and aspirin for DVT prophylaxis. Hemoglobin, hematocrit, and vital signs were monitored during her hospital stay and remained stable. Did not require any blood transfusions. There were no complications during her hospital stay. By post op day #2 the patient was tolerating a regular diet, pain was reasonably controlled with oral pain medicine, and she was participating in physical therapy. On post op day #2 the patient was discharged home and set up with home health care. She was given printed discharge instructions including prescriptions for extra strength tylenol, aspirin, and oxycodone. Continue physical therapy, weight bearing as tolerated. Continue ARLET stockings. Follow up approximately 2 weeks post op or sooner if there are problems or concerns. Coding Level of Care Code None Diagnoses Status post total right knee replacement Z96.651
== END 2020-01-23 14:35 | disposition home health service (06) ==
LOC: ASU 05:14 → 3E 05:14